=== PATIENT | female | born 1955 | race Caucasian/White ===

== ENCOUNTER 2017-07-08 22:05 | Emergency (ER) | payer BC ==
[2017-07-08] MEDS ORDERED: Alum Hydrox/Mag Hydrox/Simeth 15 ML, Lidocaine 2% 15 ML PO ONE ×2 (22:58)
--- NOTE | 2017-07-08 23:15 | EDM.PDOC ---
ED HPI GENERAL MEDICAL PROBLEM - General Chief Complaint: Abdominal Pain Stated Complaint: ILLNESS Time Seen by Provider: 07/08/17 22:50 Source of Information: Reports: Patient History Limitations: Reports: No Limitations - History of Present Illness INITIAL COMMENTS - FREE TEXT/NARRATIVE: 61-year-old female with a chronic known hiatal hernia with recurring intermittent symptoms. She developed some epigastric pain last night but took Carafate and Protonix and the symptoms improved. Tonight she redevelops symptoms and did not get his much relief from the medication so came in to discuss whether other options are available. She has no fevers or chills, no nausea or vomiting, no significant radiation of pain. She has a history of a cholecystectomy. The pain is very similar to episodes she's had in the past except more persistent. Onset: Gradual Duration: Hour(s): (3-4 hours of symptoms) Location: Reports: Abdomen (Upper abdomen, epigastric area) Quality: Reports: Ache, Stabbing Severity: Moderate Associated Symptoms: Reports: No Other Symptoms Upper Abdomen Pain Score (Numeric/FACES): 5 - Related Data Allergies Allergy/AdvReac Type Severity Reaction Status Date / Time No Known Allergies Allergy Verified 07/08/17 22:39 Home Meds: Home Meds Gemfibrozil 600 mg PO BID 07/08/17 [History] Ondansetron [Zuplenz] 4 mg PO ASDIRECTED PRN 07/08/17 [History] Pantoprazole 20 mg PO ASDIRECTED PRN 07/08/17 [History] Sucralfate 1 gm PO ASDIRECTED PRN 07/08/17 [History] Past Medical History Cardiovascular History: Reports: High Cholesterol Gastrointestinal History: Reports: Cholelithiasis, GERD 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: Neurological History: Reports: Migraines Endocrine/Metabolic History: Reports: Obesity/BMI 30+ Hematologic History: Reports: Other (See Below) Other Hematologic History: Lymes Oncologic (Cancer) History: Reports: Uterine - Infectious Disease History Infectious Disease History: Reports: Measles, Mumps - Past Surgical History GI Surgical History: Reports: Cholecystectomy, Colonoscopy, EGD Female Surgical History: Reports: Hysterectomy, Tubal Ligation Social & Family History - Tobacco Use Smoking Status *Q: Never Smoker - Caffeine Use Caffeine Use: Reports: Coffee - Recreational Drug Use Recreational Drug Use: No ED ROS GENERAL - Review of Systems Review Of Systems: See Below Constitutional: Denies: Fever, Chills, Malaise HEENT: Reports: No Symptoms Respiratory: Denies: Shortness of Breath Cardiovascular: Denies: Chest Pain, Palpitations GI/Abdominal: Reports: Abdominal Pain. Denies: Diarrhea, Decreased Appetite, Nausea, Vomiting : Reports: No Symptoms Skin: Reports: No Symptoms Neurological: Reports: No Symptoms ED EXAM, GI/ABD - Physical Exam Exam: See Below Exam Limited By: No Limitations General Appearance: Alert, No Apparent Distress (Patient is not distressed but does look uncomfortable) Eyes: Bilateral: Normal Appearance (No jaundice to the sclera) Respiratory/Chest: No Respiratory Distress, Lungs Clear Cardiovascular: Regular Rate, Rhythm GI/Abdominal Exam: Soft, Tender (Patient is tender directly over the epigastric area only, some referred pain to the upper abdomen with palpation of the lower abdomen) Extremities: No: Pedal Edema Neurological: Alert, Oriented Psychiatric: Normal Affect, Normal Mood Skin Exam: Warm, Dry Course - Vital Signs Last Recorded V/S: Last Vital Signs Temp 97.5 F 07/08/17 22:37 Pulse 84 07/09/17 00:08 Resp 16 07/09/17 00:08 BP 149/114 H 07/09/17 00:08 Pulse Ox 95 07/09/17 00:08 - Orders/Labs/Meds Orders: Active Orders 24 hr Category Date Time Status Abdomen Pelvis w Cont [CT] Stat Exams 07/09/17 00:02 Taken Labs: Laboratory Tests 07/08/17 07/08/17 Range/Units 23:33 23:33 WBC 11.9 H (4.5-11.0) K/uL RBC 4.59 (3.30-5.50) M/uL Hgb 14.1 (12.0-15.0) g/dL Hct 42.1 (36.0-48.0) % MCV 92 (80-98) fL MCH 31 (27-31) pg MCHC 34 (32-36) % Plt Count 240 (150-400) K/uL Neut % (Auto) 71 H (36-66) % Lymph % (Auto) 18 L (24-44) % [place] % (Auto) 10 H (2-6) % Eos % (Auto) 1 L (2-4) % Baso % (Auto) 1 (0-1) % Sodium 140 (140-148) mmol/L Potassium 4.0 (3.6-5.2) mmol/L Chloride 104 (100-108) mmol/L Carbon Dioxide 29 (21-32) mmol/L Anion Gap 7.5 (5.0-14.0) mmol/L BUN 17 (7-18) mg/dL Creatinine 0.9 (0.6-1.0) mg/dL Est Cr Clr Drug Dosing 64.64 mL/min Estimated GFR (MDRD) > 60 (>60) Glucose 146 H (74-106) mg/dL Calcium 8.8 (8.5-10.1) mg/dL Total Bilirubin 1.3 H (0.2-1.0) mg/dL AST 323 H (15-37) U/L ALT 132 H (12-78) U/L Alkaline Phosphatase 97 (46-116) U/L Total Protein 8.2 (6.4-8.2) g/dL Albumin 3.7 (3.4-5.0) g/dL Globulin 4.5 H (2.3-3.5) g/dL Albumin/Globulin Ratio 0.8 L (1.2-2.2) Amylase 41 (25-115) U/L Lipase 142 (73-393) U/L Meds: Medications Discontinued Medications Generic Name Dose Route Start Last Admin Trade Name Freq PRN Reason Stop Dose Admin Al Hydroxide/Mg Hydroxide 15 0 ml 07/08/17 22:58 07/08/17 23:01 ml/ Lidocaine HCl 15 ml PO 07/08/17 22:59 30 ml ONETIME ONE Administration Hydromorphone HCl 1 mg 07/08/17 23:23 07/08/17 23:30 Dilaudid IM 07/08/17 23:24 1 mg ONETIME ONE Administration Sodium Chloride 85 mls @ 4.5 mls/sec 07/09/17 00:25 07/09/17 00:33 Normal Saline IV 07/09/17 00:26 4.5 mls/sec ASDIRECTED STA Administration Iopamidol 150 ml 07/09/17 00:24 07/09/17 00:33 Isovue-300 (61%) IV 07/09/17 00:25 150 ml . DIRECTED STA Administration - Re-Assessments/Exams Free Text/Narrative Re-Assessment/Exam: 07/08/17 23:14 Patient was given a GI cocktail. 07/09/17 00:39 GI cocktail really provided no significant improvement. CBC, CMP, lipase and amylase were then obtained. 1 mg of Dilaudid was given IM 07/09/17 00:39 White blood cell count was elevated at 11.9. AST and ALT were also elevated along with bilirubin at 1.3. Remainder of labs were normal other than mildly elevated glucose. Patient was then transferred to CT for an abdomen and pelvis with IV contrast. 07/09/17 01:07 CT showed no significant abnormalities or reason for pain. Patient had a large emesis and felt much better after vomiting. There was some mild gastric distention on the CT prior to her emesis but no evidence of obstruction. I encouraged her to follow up with her primary care provider to discuss the findings and any further investigation that may be necessary. Departure - Departure Time of Disposition: :17 Disposition: Home, Self-Care 01 Condition: Good Clinical Impression: Abdominal pain Qualifiers: Abdominal location: upper abdomen, unspecified Qualified Code(s): R10.10 - Upper abdominal pain, unspecified - Discharge Information Instructions: Abdominal Pain, Adult, [id number] Referrals: PCP,None [Primary Care Provider] - Forms: ED Department Discharge Care Plan Goals: Consider taking the Protonix 2 or 3 times weekly on a regular basis. Smaller meal portions may be beneficial along with lots of water. Consider rechecking with your primary care provider to discuss any further workup or testing such as diabetic testing. - My Orders Last 24 Hours: My Active Orders 07/09/17 00:02 Abdomen Pelvis w Cont [CT] Stat - Assessment/Plan Last 24 Hours: My Active Orders 07/09/17 00:02 Abdomen Pelvis w Cont [CT] Stat
[2017-07-08] MEDS ORDERED: HYDROmorphone 1 MG/ML Syringe IM ONE (23:23)
[2017-07-09 00:10] VITALS: BP 149/114
[2017-07-09] MEDS ORDERED: Iopamidol 612 MG/ML 150 ML Bottle IV STA (00:24)
== END 2017-07-09 01:18 | disposition home or self-care (01) ==
LOC: JP.ED 22:05
DX: R10.10 Upper abdominal pain, unspecified (principal); K21.9 Gastro-esophageal reflux disease without esophagitis; G43.909 Migraine, unspecified, not intractable, without status migrainosus; E66.9 Obesity, unspecified; Z90.710 Acquired absence of both cervix and uterus; Z98.51 Tubal ligation status
CPT/HCPCS: 36415; 74177; 80053; 82150; 83690; 85025; 96372; 99284; A9270; J1170; J7030

== ENCOUNTER 2018-02-09 00:33 | Emergency (ER) | payer BC ==
[2018-02-09 00:45] VITALS: BP 193/88
[2018-02-09] MEDS ORDERED: Lactated Ringers 1,000 ML IV ONE (01:24)
[2018-02-09] MEDS ORDERED: Acetaminophen 500 MG Tab PO ONE (01:31)
[2018-02-09] MEDS ORDERED: Bismuth Subsalicylate 262 MG Tab.Chew PO ONE (01:32)
--- NOTE | 2018-02-09 01:39 | EDM.PDOC ---
ED HPI GENERAL MEDICAL PROBLEM - General Chief Complaint: Gastrointestinal Problem Stated Complaint: NAUSEA / CRAMPING Time Seen by Provider: 02/09/18 01:20 Source of Information: Reports: Patient, RN History Limitations: Reports: No Limitations - History of Present Illness INITIAL COMMENTS - FREE TEXT/NARRATIVE: 62 yo female ate a salad at [employer] in [place] yesterday. Now has diarrhea and abdominal cramping. No bloody stools. No fever. No vomiting. Onset Date: 02/08/18 Duration: Hour(s):, Waxing/Waning Location: Reports: Abdomen (cramping) Quality: Reports: Other (cramping) Severity: Moderate Improves with: Reports: None Worsens with: Reports: None Context: Reports: Other (at salad at [employer] yesterday, concerned about Enterotoxigenic E. 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: Neurological History: Reports: Migraines Endocrine/Metabolic History: Reports: Obesity/BMI 30+ Hematologic History: Reports: Other (See Below) Other Hematologic History: Lymes Oncologic (Cancer) History: Reports: Uterine - Infectious Disease History Infectious Disease History: Reports: Measles - Past Surgical History GI Surgical History: Reports: Cholecystectomy, Colonoscopy, EGD Female Surgical History: Reports: Hysterectomy, Tubal Ligation Musculoskeletal Surgical History: Reports: Other (See Below) Other Musculoskeletal Surgeries/Procedures:: Left middle toe surgery Social & Family History - Tobacco Use Smoking Status *Q: Never Smoker Second Hand Smoke Exposure: No - Caffeine Use Caffeine Use: Reports: Coffee - Recreational Drug Use Recreational Drug Use: No ED ROS GENERAL - Review of Systems Review Of Systems: See Below Constitutional: Reports: No Symptoms HEENT: Reports: No Symptoms Respiratory: Reports: No Symptoms Cardiovascular: Reports: No Symptoms Endocrine: Reports: No Symptoms GI/Abdominal: Reports: Abdominal Pain (cramps), Anorexia, Diarrhea. Denies: Black Stool, Bloody Stool, Constipation, Distension, Flatus, Hematemesis, Hematochezia, Melena, Nausea, Vomiting : Reports: No Symptoms Musculoskeletal: Reports: Back Pain (mild low back pain) Skin: Reports: No Symptoms Neurological: Reports: No Symptoms ED EXAM, GI/ABD - Physical Exam Exam: See Below Exam Limited By: No Limitations General Appearance: Alert, WD/WN, No Apparent Distress Eyes: Bilateral: Normal Appearance Ears: Normal External Exam, Normal Canal, Hearing Grossly Normal, Normal TMs Nose: Normal Inspection, Normal Mucosa, No Blood Throat/Mouth: Normal Inspection, Normal Lips, Normal Oropharynx, Normal Voice, No Airway Compromise Head: Atraumatic, Normocephalic Neck: Normal Inspection, Supple Respiratory/Chest: No Respiratory Distress, Lungs Clear, Normal Breath Sounds, No Accessory Muscle Use Cardiovascular: Regular Rate, Rhythm, No Edema GI/Abdominal Exam: Soft, Non-Tender, No Distention, Abnormal Bowel Sounds ( increased). No: Guarding, Rigid, Rebound, Tender Back Exam: Normal Inspection. No: CVA Tenderness (R), CVA Tenderness (L) Extremities: Normal Inspection, Normal Range of Motion, Non-Tender, No Pedal Edema Neurological: Alert, Oriented, CN II-XII Intact, Normal Cognition, No Motor/ Sensory Deficits Psychiatric: Normal Affect, Normal Mood Skin Exam: Warm, Dry, Intact, Normal Color, No Rash Lymphatic: No Adenopathy Course - Vital Signs Text/Narrative:: Feeling a little better with our treatments so far, unable to produce a stool specimen so far. Will offer some apple juice. Last Recorded V/S: Last Vital Signs Temp 36.1 C 02/09/18 00:40 Pulse 56 L 02/09/18 00:40 Resp 19 02/09/18 00:40 BP 193/88 H 02/09/18 00:40 Pulse Ox 97 02/09/18 00:40 Orthostatic Blood Pressure [ 160/93 Standing] Orthostatic Blood Pressure [ 156/92 Sitting] Orthostatic Blood Pressure [ 161/82 Supine] - Orders/Labs/Meds Orders: Active Orders 24 hr Category Date Time Status Orthostatic Vital Signs [RC] ASDIRECTED Care 02/09/18 01:05 Active CLOSTRIDIUM DIFFICILE BY PCR [RM] Stat Lab 02/09/18 01:36 Ordered CULTURE STOOL + SHIGATOX [RM] Stat Lab 02/09/18 01:36 Ordered CULTURE URINE [] Stat Lab 02/09/18 01:15 Received UA W/MICROSCOPIC [URIN] Stat Lab 02/09/18 01:10 Ordered Labs: Laboratory Tests 02/09/18 02/09/18 02/09/18 Range/Units 01:10 01:15 01:15 WBC 7.6 (4.5-11.0) K/uL RBC 4.53 (3.30-5.50) M/uL Hgb 13.8 (12.0-15.0) g/dL Hct 41.2 (36.0-48.0) % MCV 91 (80-98) fL MCH 31 (27-31) pg MCHC 34 (32-36) % Plt Count 258 (150-400) K/uL Sodium 140 (140-148) mmol/L Potassium 4.0 (3.6-5.2) mmol/L Chloride 104 (100-108) mmol/L Carbon Dioxide 26 (21-32) mmol/L Anion Gap 14.0 (5.0-14.0) mmol/L BUN 18 (7-18) mg/dL Creatinine 0.9 (0.6-1.0) mg/dL Est Cr Clr Drug Dosing 63.83 mL/min Estimated GFR (MDRD) > 60 (>60) Glucose 125 H (74-106) mg/dL Calcium 8.8 (8.5-10.1) mg/dL Urine Color Yellow Urine Appearance Clear Urine pH 5.0 (4.5-8.0) Ur Specific [place] 1.020 (1.008-1.030) Urine Protein Negative (NEGATIVE) mg/dL Urine Glucose (UA) Normal (NEGATIVE) mg/dL Urine Ketones Negative (NEGATIVE) mg/dL Urine Occult Blood Large (NEGATIVE) Urine Nitrite Negative (NEGATIVE) Urine Bilirubin Negative (NEGATIVE) Urine Urobilinogen Normal (NORMAL) mg/dL Ur Leukocyte Esterase Negative (NEGATIVE) Urine RBC 10-20 H (0-5) Urine WBC 0-5 (0-5) Ur Epithelial Cells Few Amorphous Sediment Not seen Urine Bacteria Few Urine Mucus Not seen Meds: Medications Discontinued Medications Generic Name Dose Route Start Last Admin Trade Name Freq PRN Reason Stop Dose Admin Acetaminophen 1,000 mg 02/09/18 01:31 Tylenol Extra Strength PO 02/09/18 01:32 ONETIME ONE Bismuth Subsalicylate 2 mg 02/09/18 01:32 Pepto Bismol PO 02/09/18 01:33 ONETIME ONE Lactated Ringer's 1,000 mls @ 1,000 mls/hr 02/09/18 01:24 02/09/18 01:38 Ringers, Lactated IV 02/09/18 02:23 1,000 mls/hr BOLUS ONE Administration Ondansetron HCl 4 mg 02/09/18 01:42 02/09/18 01:47 Zofran Odt PO 02/09/18 01:43 4 mg ONETIME ONE Administration Departure - Departure Time of Disposition: 02:40 Disposition: Home, Self-Care 01 Condition: Good Clinical Impression: Asymptomatic microscopic hematuria Diarrhea Qualifiers: Diarrhea type: presumed infectious Qualified Code(s): R19.7 - Diarrhea, unspecified Clinical Impression: (Ruled Out): Microscopic hematuria - Discharge Information Referrals: Jairon Hernandez PA-C [Primary Care Provider] - Forms: ED Department Discharge Additional Instructions: Take Peptobismol 2 tablets or 2 tablespoons full 4 times a day as long as symptoms persist. Take acetaminophen 1000 mg every 6 hrs for pain relief. Clear liquids with yogurt and a BRAT diet until your diarrhea resolves. Recheck in the clinic mid week for recheck, to review your culture results, and to recheck your urine for blood if the urine culture is negative. Frequent hand washing to reduce the risk of spread of your diarrheal disease. - My Orders Last 24 Hours: My Active Orders 02/09/18 01:05 Orthostatic Vital Signs [RC] ASDIRECTED 02/09/18 01:10 UA W/MICROSCOPIC [URIN] Stat 02/09/18 01:15 CULTURE URINE [RM] Stat 02/09/18 01:36 CLOSTRIDIUM DIFFICILE BY PCR [] Stat CULTURE STOOL + SHIGATOX [RM] Stat - Assessment/Plan Last 24 Hours: My Active Orders 02/09/18 01:05 Orthostatic Vital Signs [RC] ASDIRECTED 02/09/18 01:10 UA W/MICROSCOPIC [URIN] Stat 02/09/18 01:15 CULTURE URINE [RM] Stat 02/09/18 01:36 CLOSTRIDIUM DIFFICILE BY PCR [RM] Stat CULTURE STOOL + SHIGATOX [RM] Stat
[2018-02-09] MEDS ORDERED: Ondansetron 4 MG Tab.DIS PO ONE (01:42)
== END 2018-02-09 03:03 | disposition home or self-care (01) ==
LOC: JP.ED 00:33
DX: R31.21 Asymptomatic microscopic hematuria (principal); R19.7 Diarrhea, unspecified; E78.00 Pure hypercholesterolemia, unspecified; K21.9 Gastro-esophageal reflux disease without esophagitis; E66.9 Obesity, unspecified; Z90.710 Acquired absence of both cervix and uterus; Z68.34 Body mass index [BMI] 34.0-34.9, adult
CPT/HCPCS: 36415; 80048; 81001; 85027; 87086; 96360; 99284; A9270; J7120